=== PATIENT | female | born 1980 | race Caucasian/White ===

== ENCOUNTER 2017-05-13 18:34 | Emergency (ER) | payer OTHER ==
[2017-05-13 18:46] VITALS: BP 115/72; PULSE 93; TEMP 98.5; BMI 27.4
--- NOTE | 2017-05-13 19:07 | PDOC ---
History of Present Illness - General Chief Complaint: Pain Stated Complaint: PAIN Time Seen by Provider: 05/13/17 19:06 Past History - Past Medical History Allergies/Adverse Reactions: Allergies Allergy/AdvReac Type Severity Reaction Status Date / Time No Known Allergies Allergy Verified 05/13/17 18:46 Home Medications: Ambulatory Orders NK [No Known Home Medication] 05/29/16 Hypercholesterolemia: Yes Other medical history: UTERINE FIBROIDS - Suicide/Smoking/Psychosocial Hx Smoking History: Current every day smoker Number of Cigarettes Smoked Daily: 10 Information on smoking cessation initiated: No Hx Alcohol Use: No Drug/Substance Use Hx: No Substance Use Type: None *Physical Exam - Vital Signs Last Vital Signs Temp Pulse Resp BP Pulse Ox 98.5 F 93 H 20 115/72 98 05/13/17 18:43 05/13/17 18:43 05/13/17 18:43 05/13/17 18:43 05/13/17 18:43
[2017-05-13] MEDS ORDERED: MAG HYDROX/AL HYDROX/SIMETH 30 ML UNIT-DOSE CUP PO ONE (19:45)
[2017-05-13] MEDS ORDERED: PANTOPRAZOLE 20 MG TABLET (FP) PO ONE (19:45)
[2017-05-13] MEDS ORDERED: MAG HYDROX/AL HYDROX/SIMETH 30 ML UNIT-DOSE CUP ONE (20:03)
[2017-05-13] MEDS ORDERED: PANTOPRAZOLE 40 MG TABLET (FP) ONE (20:03)
[2017-05-13 20:09] LABS: URINE APPEARANCE CLEAR; URINE BILIRUBIN NEGATIVE (NEGATIVE); URINE BLOOD NEGATIVE (NEGATIVE); URINE COLOR YELLOW; URINE GLUCOSE (UA) NEGATIVE (NEGATIVE); URINE KETONE NEGATIVE (NEGATIVE); URINE NITRITE NEGATIVE (NEGATIVE); URINE PROTEIN NEGATIVE (NEGATIVE); URINE UROBILINOGEN NEGATIVE mg/dL (0.2-1.0)
--- NOTE | 2017-05-13 21:05 | PDOC ---
Attending Attestation - Resident Resident Name: Gamal Fisher - ED Attending Attestation I have performed the following: I have examined & evaluated the patient, The case was reviewed & discussed with the resident, I agree w/resident's findings & plan, Exceptions are as noted - HPI HPI: 36 yo F history fibroids and ovarian cysts presents with LLQ abdominal pain. She states that her last period started 2 weeks ago, but it lasted more than 1 week (which is typical for her with the fibroids). No vomiting, diarrhea, fever , chills. Pain is positional. Initially described as gas pain, but was worsening over time. Currently in moderate pain. - Physicial Exam PE: GENERAL: Awake, alert, and fully oriented, in no acute distress. Appears uncomfortable. HEAD: No signs of trauma EYES: PERRLA, EOMI, sclera anicteric, conjunctiva clear ENT: Auricles normal inspection, hearing grossly normal, nares patent, oropharynx clear without exudates. Moist mucosa NECK: Normal ROM, supple, no lymphadenopathy, JVD, or masses LUNGS: Breath sounds equal, clear to auscultation bilaterally. No wheezes, and no crackles HEART: Regular rate and rhythm, normal S1 and S2, no murmurs, rubs or gallops ABDOMEN: Soft, +LLQ and L side tenderness, normoactive bowel sounds. No guarding, no rebound. No masses EXTREMITIES: Normal range of motion, no edema. No clubbing or cyanosis. No cords, erythema, or tenderness NEUROLOGICAL: Cranial nerves II through XII grossly intact. Normal speech, normal gait SKIN: Warm, Dry, normal turgor, no rashes or lesions noted. - Medical Decision Making Pt with history of ovarian cysts presents with LLQ pain. Suspect ovarian cyst, will obtain sono to further evaluate.
[2017-05-13] MEDS ORDERED: SODIUM CHLORIDE 1,000 ML IV STA (21:13)
[2017-05-13] MEDS ORDERED: KETOROLAC TROMETHAMINE 30 MG/1 ML VIAL IVPUSH ONE (21:13)
--- NOTE | 2017-05-13 21:50 | PDOC ---
History of Present Illness - General Chief Complaint: Pain Stated Complaint: PAIN Time Seen by Provider: 05/13/17 19:06 - History of Present Illness Initial Comments: 36 year old female with history of 2 deliveries, fibroids, and ovarian cysts presenting with LLQ abdominal pain for the past few days. She has transvaginal ultrasounds in the past demonstrating ovarian cysts and fibroids but none in our medical system. She describes the pain as an occasional sharp, non radiating pain that is better with certain movements and feels like a "gas pain". Her LMP was two weeks prior and she admits to having abnormal periods which last two week long with variable bleeding. Denies fevers, chills, nausea, vomiting, diarrhea, constipation or other sick symptoms. 05/13/17 21:19 Past History - Past Medical History Allergies/Adverse Reactions: Allergies Allergy/AdvReac Type Severity Reaction Status Date / Time No Known Allergies Allergy Verified 05/13/17 18:46 Home Medications: Ambulatory Orders NK [No Known Home Medication] 05/29/16 Hypercholesterolemia: Yes Other medical history: UTERINE FIBROIDS - Suicide/Smoking/Psychosocial Hx Smoking History: Current every day smoker Number of Cigarettes Smoked Daily: 10 Information on smoking cessation initiated: No Hx Alcohol Use: No Drug/Substance Use Hx: No Substance Use Type: None Review of Systems - Review of Systems Constitutional: No: Diaphoresis, Fever HEENTM: No: Eye Pain, Blurred Vision Respiratory: No: Cough Cardiac (ROS): No: Chest Pain ABD/GI: No: Constipated, Nausea, Vomiting *Physical Exam - Vital Signs Last Vital Signs Temp Pulse Resp BP Pulse Ox 98.5 F 93 H 20 115/72 98 05/13/17 18:43 05/13/17 18:43 05/13/17 18:43 05/13/17 18:43 05/13/17 18:43 - Physical Exam General Appearance: Yes: Nourished. No: Appropriately Dressed, Apparent Distress HEENT: positive: EOMI, PAYTON, Normal ENT Inspection, Normal Voice Neck: positive: Trachea midline, Normal Thyroid, Supple. negative: Tender, Rigid Respiratory/Chest: positive: Lungs Clear, Normal Breath Sounds. negative: Chest Tender, Respiratory Distress, Accessory Muscle Use Cardiovascular: positive: Regular Rhythm, Regular Rate, S1, S2 Gastrointestinal/Abdominal: positive: Normal Bowel Sounds, Tender (Mild tenderness in LLQ), Flat, Soft Musculoskeletal: positive: Normal Inspection. negative: CVA Tenderness Extremity: positive: Normal Capillary Refill, Normal Inspection, Normal Range of Motion Integumentary: positive: Normal Color, Dry, Warm Neurologic: positive: Fully Oriented, Alert, Normal Mood/Affect, Normal Response , Motor Strength 11/21 ED Treatment Course - ADDITIONAL ORDERS Additional order review: Laboratory Results 05/13/17 20:00 Urine Color Yellow Urine Appearance Clear Urine pH 6.0 Urine Protein Negative Urine Glucose (UA) Negative Urine Ketones Negative Urine Blood Negative Urine Nitrite Negative Urine Bilirubin Negative Urine Urobilinogen Negative Urine HCG, Qual Negative - Medications Given in the ED: ED Medications Discontinued Medications Generic Name Dose Route Start Last Admin Trade Name Freq PRN Reason Stop Dose Admin Al Hydroxide/Mg Hydroxide 30 ml 05/13/17 19:45 05/13/17 20:07 Mylanta Oral Suspension - PO 05/13/17 19:46 30 ml ONCE ONE Administration Pantoprazole Sodium 20 mg 05/13/17 19:45 05/13/17 20:07 Protonix - PO 05/13/17 19:46 20 mg ONCE ONE Administration Medical Decision Making - Medical Decision Making 36 year old female with PMH of fibroids and cysts presenting with LL abdominal pain. Given she has known cysts this is most likely acute exacerbation of her cystic pain but possibly also related to flatulence as she endorses this feeling like "gas". Less likely diverticular disease given unimpressive pain, gender, and age. Can consider this diagnosis if cystic exacerbation does nto explain her pain. She was feeling better after maalox but her pain flared up upon evaluation by the attending physician. We decided to evaluate her cystic disease further with a transvaginal ultrasound. Urine clean and upreg negative. Patient signed out to Dr. Miller in stable condition with TVUS pending. 05/13/17 23:00 *DC/Admit/Observation/Transfer Diagnosis at time of Disposition: Abdominal pain Qualifiers: Abdominal location: left lower quadrant Qualified Code(s): R10.32 - Left lower quadrant pain; R10.32 - Left lower quadrant pain
[2017-05-13] MEDS ORDERED: KETOROLAC TROMETHAMINE 30 MG/1 ML VIAL ONE (21:53)
[2017-05-13 22:17] LABS: URINE LEUK ESTERASE Negative (NEGATIVE)
--- NOTE | 2017-05-14 00:11 | PDOC ---
*Physical Exam - Vital Signs Last Vital Signs Temp Pulse Resp BP Pulse Ox 98.5 F 93 H 20 115/72 98 05/13/17 18:43 05/13/17 18:43 05/13/17 18:43 05/13/17 18:43 05/13/17 18:43 - Physical Exam General Appearance: Yes: Nourished, Appropriately Dressed Respiratory/Chest: positive: Lungs Clear Cardiovascular: positive: S1, S2 Gastrointestinal/Abdominal: positive: Tender, Soft. negative: Guarding, Rebound , Tenderness Integumentary: positive: Normal Color, Dry, Warm Neurologic: positive: Fully Oriented, Alert ED Treatment Course - ADDITIONAL ORDERS Additional order review: Laboratory Results 05/13/17 20:00 Urine Color Yellow Urine Appearance Clear Urine pH 6.0 Ur Specific Frostproof 1.025 Urine Protein Negative Urine Glucose (UA) Negative Urine Ketones Negative Urine Blood Negative Urine Nitrite Negative Urine Bilirubin Negative Urine Urobilinogen Negative Ur Leukocyte Esterase Negative Urine HCG, Qual Negative - Medications Given in the ED: ED Medications Discontinued Medications Generic Name Dose Route Start Last Admin Trade Name Chay PRN Reason Stop Dose Admin Al Hydroxide/Mg Hydroxide 30 ml 05/13/17 19:45 05/13/17 20:07 Mylanta Oral Suspension - PO 05/13/17 19:46 30 ml ONCE ONE Administration Sodium Chloride 1,000 mls @ 1,000 mls/hr 05/13/17 21:13 05/13/17 22:07 Normal Saline - IV 05/13/17 22:12 1,000 mls/hr ASDIR STA Administration Ketorolac Tromethamine 30 mg 05/13/17 21:13 05/13/17 22:07 Toradol Injection - IVPUSH 05/13/17 21:14 30 mg ONCE ONE Administration Pantoprazole Sodium 20 mg 05/13/17 19:45 05/13/17 20:07 Protonix - PO 05/13/17 19:46 20 mg ONCE ONE Administration Medical Decision Making - Medical Decision Making 05/14/17 00:08 Patient signed out by Dr. Fisher (Resident) under the care of Dr. Lloyd ( Attending) Patient is a 36 y.o. female with a PMH of uterine fibroids and ovarian cysts who presented with LLQ abdominal pain. Initial clinical suspicion for hemorrhagic ovarian cyst vs. ovarian torsion. Transvaginal U/S negative for torsion. On repeat exam patient notes her LMP was yesterday and she has vaginal bleed every 2 weeks (likely 2/2 to fibroids). UA negative for UTI and test negative. Likely diagnosis is pain 2/2 to DUB. As patient was ambulatory, improved and tolerating PO intake patient discharged home with return precautions, copy of transvaginal U/S and instruction to follow up with PCP for further work-up including evaluation of her DUB/Fibroids. *DC/Admit/Observation/Transfer Diagnosis at time of Disposition: Left lower quadrant abdominal pain of unknown etiology Abdominal pain Qualifiers: Abdominal location: left lower quadrant Qualified Code(s): R10.32 - Left lower quadrant pain - Discharge Dispostion Disposition: HOME Condition at time of disposition: Good Admit: No - Patient Instructions Printed Discharge Instructions: DI for Abdominal Pain-Adult, DI for Uterine Fibroids, Uterine Fibroids, Facts About Fibroids Additional Instructions: A copy of your ultrasound and labs have been provided to you. Please take these reports to your PCP for further evaluation as necessary. Please return to the Emergency Department should you have any worsening or concerning symptoms.
== END 2017-05-14 00:28 | disposition home or self-care (01) ==
LOC: JER 18:34
PROC: 3E0333Z Introduction of Anti-inflammatory into Peripheral Vein, Percutaneous Approach (ICD-10-PCS; principal; 2017-05-13)
DX: R10.32 Left lower quadrant pain (principal); Z86.69 Personal history of other diseases of the nervous system and sense organs
CPT/HCPCS: 76830-TC; 81003; 84703; 99282-25

== ENCOUNTER 2018-11-02 19:11 | Emergency (ER) | payer OTHER ==
[2018-11-02 19:15] VITALS: BP 158/94; PULSE 100; TEMP 98.4; BMI 26.9
--- NOTE | 2018-11-02 19:16 | PDOC ---
Rapid Medical Evaluation Chief Complaint: Headache Time Seen by Provider: 11/02/18 19:13 Medical Evaluation: Allergies Allergy/AdvReac Type Severity Reaction Status Date / Time No Known Allergies Allergy Verified 03/02/18 22:52 11/02/18 19:13 37 year old female c/o headache x 5 days reports no relief in pain after taking in motrin denies nausea and vomiting Pe: patient alert ox3 A: headache P; Ua urine patient to the ER for further management of care. Discharge Disposition - Diagnosis Headache Qualifiers: Headache type: unspecified Headache chronicity pattern: acute headache Intractability: intractable Qualified Code(s): R51 - Headache - Referrals - Patient Instructions - Post Discharge Activity
[2018-11-02] MEDS ORDERED: ACETAMINOPHEN 500 MG TABLET (FP) PO ONE (19:36)
[2018-11-02] MEDS ORDERED: ACETAMINOPHEN 500 MG TABLET (FP) ONE (19:37)
--- NOTE | 2018-11-02 19:39 | PDOC ---
History of Present Illness - General Chief Complaint: Headache Stated Complaint: HEADACHE Time Seen by Provider: 11/02/18 19:13 - History of Present Illness Initial Comments: 11/02/18 19:38 35-year-old female without comorbidities presents for evaluation of left-sided parietal headache 5 days without relief after 800 mg of Motrin. She took Motrin at home yesterday. No nausea vomiting. She states she also feels anxious and her headache may be precipitated by an anxiety attack. She has no history of headaches or anxiety attacks. Past History - Past Medical History Allergies/Adverse Reactions: Allergies Allergy/AdvReac Type Severity Reaction Status Date / Time No Known Allergies Allergy Verified 11/02/18 19:15 Home Medications: Ambulatory Orders Metoclopramide HCl [Reglan -] 10 mg PO TID #30 tablet 03/03/18 COPD: No Hypercholesterolemia: Yes - Immunization History Immunization Up to Date: Yes - Suicide/Smoking/Psychosocial Hx Smoking History: Never smoked Number of Cigarettes Smoked Daily: 10 Hx Alcohol Use: No Drug/Substance Use Hx: No Substance Use Type: None Review of Systems - Review of Systems Constitutional: No: Fever HEENTM: No: Throat Pain Respiratory: No: Cough Neurological: Yes: Headache Psychiatric: Yes: Anxiety *Physical Exam - Vital Signs Last Vital Signs Temp Pulse Resp BP Pulse Ox 98.4 F 100 H 18 158/94 100 11/02/18 19:13 11/02/18 19:13 11/02/18 19:13 11/02/18 19:13 11/02/18 19:13 - Physical Exam Comments: 11/02/18 19:39 HEAD: NC/AT EYES: Conjuntiva clear Ears: Canals and TM's normal NOSE: No d/c THROAT: Moist mucous membrances, oral pharanx clear, uvula midline NECK: Supple without adenopathy CARDIAC: S1 S2 LUNGS: CTA Full and Equal breath sounds ABDOMEN: Soft NT ND MS: Full ROM in all joints without edema NEUROLOGIC: No gross sensory or motor deficits, NVID SKIN: Normal color and temperature no lesions or rashes Medical Decision Making - Medical Decision Making 11/02/18 21:05 CT negative, HOFFMAN relived minimally with PO Tylenol and aborted with IV meds. Will have pt f/u with Neurology *DC/Admit/Observation/Transfer Diagnosis at time of Disposition: Headache Qualifiers: Headache type: unspecified Headache chronicity pattern: acute headache Intractability: intractable Qualified Code(s): R51 - Headache - Discharge Dispostion Disposition: HOME Condition at time of disposition: Improved Decision to Admit order: No - Referrals Referrals: Toan Spence MD [Primary Care Provider] - Bobby Rey MD [Staff Physician] - - Patient Instructions Printed Discharge Instructions: DI for Headache Additional Instructions: Continue with Tylenol and Motrin as directed for pain. Return to the emergency room for worsening symptoms and follow-up with neurology in 1-2 days for further evaluation and treatment options of your headache. Your CAT scan today was normal - Post Discharge Activity
[2018-11-02 20:00] LABS: URINE APPEARANCE CLEAR; URINE BILIRUBIN NEGATIVE (NEGATIVE); URINE COLOR YELLOW; URINE GLUCOSE (UA) NEGATIVE (NEGATIVE); URINE KETONE NEGATIVE (NEGATIVE); URINE LEUK ESTERASE NEGATIVE (NEGATIVE); URINE NITRITE NEGATIVE (NEGATIVE); URINE PROTEIN NEGATIVE (NEGATIVE); URINE UROBILINOGEN 0.2 mg/dL (0.2-1.0)
[2018-11-02 20:02] LABS: HCG,QUALITATIVE URINE Negative
[2018-11-02] MEDS ORDERED: SODIUM CHLORIDE 0.9% 500 ML INFUS.BAG IV ONE (20:33)
[2018-11-02] MEDS ORDERED: METOCLOPRAMIDE HCL INJECTION 10 MG/2 ML VIAL IVPUSH ONE (20:33)
[2018-11-02] MEDS ORDERED: METOCLOPRAMIDE HCL INJECTION 10 MG/2 ML VIAL ONE (20:38)
[2018-11-02] MEDS ORDERED: KETOROLAC TROMETHAMINE 30 MG/1 ML VIAL ONE (20:54)
[2018-11-02] MEDS ORDERED: KETOROLAC TROMETHAMINE 30 MG/1 ML VIAL IVPUSH ONE (21:20)
[2018-11-03] MEDS ORDERED: KETOROLAC TROMETHAMINE 30 MG/1 ML VIAL IVPUSH ONE (02:00)
== END 2018-11-02 22:10 | disposition home or self-care (01) ==
LOC: JERFT 19:11
PROC: 3E033GC Introduction of Other Therapeutic Substance into Peripheral Vein, Percutaneous Approach (ICD-10-PCS; principal; 2018-11-02)
PROC: 3E0333Z Introduction of Anti-inflammatory into Peripheral Vein, Percutaneous Approach (ICD-10-PCS; 2018-11-02)
DX: R51 Headache (principal)
CPT/HCPCS: 70450-TC; 81003; 84703; 96374; 96375; 99281-25

== ENCOUNTER 2019-02-26 02:35 | Emergency (ER) | payer OTHER | END 2019-02-26 07:31 | disposition home or self-care (01) | LOC: JER 02:35 ==

== ENCOUNTER 2021-01-20 23:03 | Emergency (ER) | payer OTHER ==
[2021-01-20 23:11] VITALS: BP 153/94; PULSE 100; TEMP 98.2; BMI 29.2
[2021-01-21] MEDS ORDERED: ACETAMINOPHEN/CAFFEINE/BUTALBITAL 1 TAB PO ONE (00:13)
[2021-01-21] MEDS ORDERED: ACETAMINOPHEN/CAFFEINE/BUTALBITAL 1 TAB ONE (00:24)
== END 2021-01-21 02:31 | disposition home or self-care (01) ==
LOC: JER 23:03
DX: R51.9 Headache, unspecified (principal)
CPT/HCPCS: 93005; 93010; 99284-25

== ENCOUNTER 2021-10-03 19:01 | Emergency (ER) | payer OTHER ==
[2021-10-03 19:17] VITALS: BP 155/98; PULSE 102; TEMP 98; BMI 28.3
== END 2021-10-03 20:40 | disposition home or self-care (01) ==
LOC: JERFT 19:01
DX: R09.89 Other specified symptoms and signs involving the circulatory and respiratory systems (principal)
CPT/HCPCS: 70360-TC-FY; 99283-25

== ENCOUNTER 2021-10-06 15:02 | Emergency (ER) | payer OTHER ==
[2021-10-06 15:22] VITALS: BP 170/94; PULSE 84; TEMP 98.2; BMI 28.3
== END 2021-10-06 17:25 | disposition home or self-care (01) ==
LOC: JER 15:02
DX: F41.0 Panic disorder [episodic paroxysmal anxiety] (principal)
CPT/HCPCS: 99281-25

== ENCOUNTER 2022-04-06 23:58 | Emergency (ER) | payer OTHER ==
[2022-04-07 00:20] VITALS: BP 126/82; PULSE 76; RESP 18; TEMP 98.2; BMI 30.2
[2022-04-07 03:08] LABS: BASO % 0.7 % (0-2.0); EOS % 1.8 % (0-4.5); HEMATOCRIT 37.8 % (32.4-45.2); LYMPH % 34.7 % (8-40); MCH 31.9 pg (25.7-33.7); MCHC 34.4 g/dl (32.0-36.0); MEAN CELL VOLUME 92.9 fl (80-96); MEAN PLT VOLUME 8.1 fl (7.5-11.1); MONO % 7.4 % (3.8-10.2); NEUT % 55.4 % (42.8-82.8); PLATELET COUNT 252 10^3/uL (134-434); RBC 4.07 M/mm3 (3.60-5.2); RDW 13.6 % (11.6-15.6); WHITE BLOOD COUNT 10.2 K/mm3 (4.0-10.0)
[2022-04-07 03:25] LABS: CALCIUM 8.7 mg/dL (8.5-10.1)
[2022-04-07 03:26] LABS: ALBUMIN 3.3 g/dl (3.4-5.0); BLOOD UREA NITROGEN 16.5 mg/dL (7-18)
[2022-04-07 03:29] LABS: CREATININE 0.6 mg/dL (0.55-1.3)
[2022-04-07 03:31] LABS: BILIRUBIN,TOTAL 0.3 mg/dL (0.2-1); TOT PROT 6.6 g/dl (6.4-8.2)
== END 2022-04-07 05:31 | disposition home or self-care (01) ==
LOC: JER 23:58
DX: S50.12XA Contusion of left forearm, initial encounter (principal); Y99.9 Unspecified external cause status
CPT/HCPCS: 36415; 75635-TC; 80053; 84703; 85025; 99284-25; Q9967